=== PATIENT | male | born 1970 | race Two or more races ===

== ENCOUNTER 2017-04-21 14:59 | Emergency (ER) | payer OTHER ==
[~2017-04-21] VITALS: Ht 162.6 cm; Wt 68.0 kg
[2017-04-21] VITALS (15 sets, daily range): BP systolic 102–147; BP diastolic 63–97
[2017-04-21] MEDS ORDERED: DiphenhydrAMINE 50mg/ml Inj ONE (15:00)
[2017-04-21] MEDS ORDERED: DiphenhydrAMINE 50mg/ml Inj IM ONE (15:00)
[2017-04-21] MEDS ORDERED: Haloperidol 5mg/ml Inj IM ONE (15:00)
[2017-04-21] MEDS ORDERED: Haloperidol 5mg/ml Inj ONE (15:00)
[2017-04-21] MEDS ORDERED: LORazepam Inj 2mg/ml 1ml IM ONE (15:00)
[2017-04-21] MEDS ORDERED: LORazepam Inj 2mg/ml 1ml ONE (15:00)
[2017-04-21 16:06] LABS: APPEARANCE,URINE CLEAR; KETONES,URINE NEGATIVE (NEGATIVE); LEUKOCYTE ESTERASE ,URINE NEGATIVE (NEGATIVE); NITRITE,URINE NEGATIVE (NEGATIVE); PH,URINE 5 (4.5-8.0); PROTEIN,URINE NEGATIVE (NEGATIVE); UROBILINOGEN,URINE NORMAL MG/DL (0.0-1.0)
[2017-04-21 16:09] LABS: BASOPHILS % (AUTO) 3.3 % (0.0-2.0); EOSINOPHILS % (AUTO) 0.5 % (0.0-3.0); LYMPHOCYTES % (AUTO) 16.1 % (20.0-45.0); MEAN CORPUSCULAR HEMOGLOBIN 32.3 PG (27.0-31.0); MEAN CORPUSCULAR HGB CONC 32.9 G/DL (32.0-36.0); MEAN CORPUSCULAR VOLUME 98 FL (80-99); MEAN PLATELET VOLUME 6.2 FL (6.5-10.1); MONOCYTES % (AUTO) 7.8 % (1.0-10.0); NEUTROPHILS % (AUTO) 72.4 % (45.0-75.0); PLATELET COUNT 344 K/UL (150-450); RED BLOOD COUNT 3.96 M/UL (4.70-6.10); RED CELL DISTRIBUTION WIDTH 12.7 % (11.6-14.8); WHITE BLOOD COUNT 4.7 K/UL (4.8-10.8)
[2017-04-21 16:14] LABS: ANION GAP 16 mmol/L (5-15); CARBON DIOXIDE 20 MMOL/L (21-32); CHLORIDE 102 MMOL/L (98-107); CREATININE 0.9 MG/DL (0.55-1.30); GLOMERULAR FILTRATION RATE > 60 mL/min (>60); POTASSIUM 3.2 MMOL/L (3.5-5.1); SODIUM 138 MMOL/L (136-145)
[2017-04-21 16:17] LABS: BACTERIA,URINE FEW /HPF; SQUAMOUS EPITHELIAL CELL,UR OCCASIONAL /LPF (NONE/OCC); WBC,URINE 0-2 /HPF (0 - 0)
[2017-04-21 16:19] LABS: ALANINE AMINOTRANSFERASE 179 U/L (12-78); ALBUMIN/GLOBULIN RATIO 1.1 (1.0-2.7); ALCOHOL 169 mg/dL; ASPARTATE AMINO TRANSFERASE 174 U/L (15-37); TOTAL PROTEIN 7.5 G/DL (6.4-8.2)
[2017-04-21 16:25] LABS: ACETAMINOPHEN < 2 MCG/ML (10-30)
--- NOTE | 2017-04-21 16:29 | Emergency Room Report ---
History of Present Illness General Chief Complaint: Behavioral Complaint Source: Patient, Medical Record Present Illness HPI 46-year-old male presents to the emergency department brought by ambulance and accompanied by [employer] for aggressive behavior at local [employer]. Patient was reported to have been yelling and on the verge of throwing things inside the store and stating that she is going to kill himself. Patient denies any pain upon arrival he reports marijuana use but denies other illicit drug use. Patient denies psychiatric history. HPI and ROS is limited due to poor patient cooperation, limited attention span, being verbally and physically aggressive, hostile with paranoid comments. Allergies: Coded Allergies: No Known Allergies (Unverified , 04/21/17) Patient History Past Medical History: see triage record Past Surgical History: unable to obtain Pertinent Family History: unable to obtain Social History: Reports: drug use - THC Reviewed Nursing Documentation: PMH: Agreed, PSxH: Agreed Nursing Documentation-PMH Past Medical History: No History, Except For Review of Systems All Other Systems: negative except mentioned in HPI Physical Exam Vital Signs Date Time Temp Pulse Resp B/P (MAP) Pulse Ox O2 Delivery O2 Flow Rate FiO2 04/21/17 14:50 98.1 109 16 147/97 98 Room Air Sp02 EP Interpretation: reviewed, normal General Appearance: no apparent distress, alert, GCS 15, non-toxic Head: normocephalic, atraumatic Eyes: bilateral eye normal inspection, bilateral eye PERRL ENT: hearing grossly normal, normal voice Neck: full range of motion Respiratory: chest non-tender, lungs clear, normal breath sounds, no respiratory distress, no wheezing, speaking full sentences Cardiovascular #1: regular rate, rhythm, normal capillary refill, tachycardia Cardiovascular #2: 2+ radial (R), 2+ radial (L) Gastrointestinal: normal bowel sounds, non tender, soft, no guarding Rectal: deferred Musculoskeletal: back normal, gait/station normal, normal range of motion, non- tender Neurologic: alert, oriented x3, responsive, motor strength/tone normal, sensory intact, speech normal Psychiatric: anxious, other - poor patient cooperation, limited attention span , being verbally and physically aggressive, hostile with paranoid comments. Skin: normal color, no rash, warm/dry, well hydrated Medical Decision Making PA Attestation Dr. Marroquin is my supervising Physician whom patient management has been discussed with. Diagnostic Impression: Primary Impression: Amphetamine abuse Additional Impressions: Marijuana use Medical clearance for incarceration Elevated liver enzymes ER Course 46-year-old male presents to the emergency department brought by ambulance and accompanied by [employer] for aggressive behavior at local [employer]. Patient was reported to have been yelling and on the verge of throwing things inside the store and stating that she is going to kill himself. Patient denies any pain upon arrival he reports marijuana use but denies other illicit drug use. Patient denies psychiatric history. HPI and ROS is limited due to poor patient cooperation, limited attention span, being verbally and physically aggressive, hostile with paranoid comments. Pt is hyperactive, and has a very hostile/paranoid/anxious and restless affect. Ddx considered but are not limited to OD, SI/HI, psychosis, UTI, intoxication --Just prior to PD leaving the department, he notified us that patient will be placed into custody as he has some outstanding warrants. PD requests that we give medical clearance prior to incarceration. PD requests that they are notified wants medical clearance is obtained and they will return for the patient at that time. Vital signs: are WNL, pt. is afebrile H&PE are most consistent with behavioral/mental health issue, possible Drug intoxication. will do basic lab work. ORDERS: -CBC, CMP: Unremarkable, electrolytes ok, elevated LFT's -UA: negative for infection see results attached. -UDS: positive for amphetamines and THC -Salicylates and Acetaminophen - no acute intoxication. ED INTERVENTIONS: -Behavioral restraints were applied once PD removed handcuffs as : Patient displayed verbal and physical aggression which posed as a danger to others. 4 point leather restraints were placed pt. was NVI. - 2mg Ativan IM -Benadryl IM -Haldol IM DISPOSITION: Patient is medically cleared for incarceration, and is Stable for D /C to law enforcement in custody. Labs Test 04/21/17 15:46 White Blood Count 4.7 K/UL (4.8-10.8) Red Blood Count 3.96 M/UL (4.70-6.10) Hemoglobin 12.8 G/DL (14.2-18.0) Hematocrit 38.8 % (42.0-52.0) Mean Corpuscular Volume 98 FL (80-99) Mean Corpuscular Hemoglobin 32.3 PG (27.0-31.0) Mean Corpuscular Hemoglobin Concent 32.9 G/DL (32.0-36.0) Red Cell Distribution Width 12.7 % (11.6-14.8) Platelet Count 344 K/UL (150-450) Mean Platelet Volume 6.2 FL (6.5-10.1) Neutrophils (%) (Auto) 72.4 % (45.0-75.0) Lymphocytes (%) (Auto) 16.1 % (20.0-45.0) Monocytes (%) (Auto) 7.8 % (1.0-10.0) Eosinophils (%) (Auto) 0.5 % (0.0-3.0) Basophils (%) (Auto) 3.3 % (0.0-2.0) Urine Color Pale yellow Urine Appearance Clear Urine pH 5 (4.5-8.0) Urine Specific Morris 1.020 (1.005-1.035) Urine Protein Negative (NEGATIVE) Urine Glucose (UA) Negative (NEGATIVE) Urine Ketones Negative (NEGATIVE) Urine Occult Blood 1+ (NEGATIVE) Urine Nitrite Negative (NEGATIVE) Urine Bilirubin Negative (NEGATIVE) Urine Urobilinogen Normal MG/DL (0.0-1.0) Urine Leukocyte Esterase Negative (NEGATIVE) Urine RBC 2-4 /HPF (0 - 0) Urine WBC 0-2 /HPF (0 - 0) Urine Squamous Epithelial Cells Occasional /LPF Urine Bacteria Few /HPF (NONE) Sodium Level 138 MMOL/L (136-145) Potassium Level 3.2 MMOL/L (3.5-5.1) Chloride Level 102 MMOL/L (98-107) Carbon Dioxide Level 20 MMOL/L (21-32) Anion Gap 16 mmol/L (5-15) Blood Urea Nitrogen 10 mg/dL (7-18) Creatinine 0.9 MG/DL (0.55-1.30) Estimat Glomerular Filtration Rate > 60 mL/min (>60) Glucose Level 100 MG/DL (74-106) Calcium Level 9.0 MG/DL (8.5-10.1) Total Bilirubin 0.5 MG/DL (0.2-1.0) Aspartate Amino Transf (AST/SGOT) 174 U/L (15-37) Alanine Aminotransferase (ALT/SGPT) 179 U/L (12-78) Alkaline Phosphatase 81 U/L (46-116) Total Protein 7.5 G/DL (6.4-8.2) Albumin 3.9 G/DL (3.4-5.0) Globulin 3.6 g/dL Albumin/Globulin Ratio 1.1 (1.0-2.7) Salicylates Level 1.9 ug/mL (2.8-20) Urine Opiates Screen Negative (NEGATIVE) Acetaminophen Level < 2 MCG/ML (10-30) Urine Barbiturates Screen Negative (NEGATIVE) Phencyclidine (PCP) Screen Negative (NEGATIVE) Urine Amphetamines Screen Positive (NEGATIVE) Urine Benzodiazepines Screen Negative (NEGATIVE) Urine Cocaine Screen Negative (NEGATIVE) Urine Marijuana (THC) Screen Positive (NEGATIVE) Serum Alcohol 169 mg/dL Last Vital Signs Date Time Temp Pulse Resp B/P (MAP) Pulse Ox O2 Delivery O2 Flow Rate FiO2 04/21/17 15:30 98 18 94 Room Air 04/21/17 14:59 98.1 147/97 Disposition: D/C TO LAW ENFORCEMENT IN CUST Condition: Stable Referrals: NOT CHOSEN IPA/MD,REFERRING (PCP) Patient Instructions: Medical Screening Exam Additional Instructions: Discontinue use of illicit drugs: Amphetamines, marijuana. Return sooner to ED if new symptoms occur, or current symptoms become worse. - Please note that this Emergency Department Report was dictated using [employer]ator technology software, occasionally this can lead to erroneous entry secondary to interpretation by the dictation equipment. Jael Christensen Apr 21, 2017 16:29
== END 2017-04-21 18:30 ==
LOC: EDBD 14:59 → EMR 15:32
DX: F15.10 Other stimulant abuse, uncomplicated (principal); F12.90 Cannabis use, unspecified, uncomplicated; R74.8 Abnormal levels of other serum enzymes
CPT/HCPCS: 36415; 80053; 80307; 81003; 85025; 96372; 99283; G0480; J1200; J1630; 80329